=== PATIENT | female | born 1985 | race Hispanic/Latino ===

== ENCOUNTER 2018-12-04 20:52 | Emergency (ER) | payer OTHER ==
[2018-12-04 21:12] LABS: APPEARANCE,URINE Clear (CLEAR); BILIRUBIN,URINE Negative (NEGATIVE); COLOR,URINE Yellow (YELLOW); GLUCOSE, URINE (UA) Negative (NEGATIVE); KETONES,URINE Negative (NEGATIVE); LEUKOCYTE ESTERASE ,URINE Trace (NEGATIVE); NITRATE,URINE Negative (NEGATIVE); OCCULT BLOOD,URINE Large (NEGATIVE); PROTEIN,URINE Negative (NEGATIVE)
[2018-12-04 21:14] LABS: HCG,QUAL RESULT NEGATIVE (NEGATIVE)
[2018-12-04] MEDS ORDERED: DEXAMETHASONE SOD PHOSPHATE 10MG/ML 1ML VIAL ONE (21:19)
[2018-12-04] MEDS ORDERED: KETOROLAC TROMETHAMINE 60 MG/2 ML VIAL ONE (21:19)
[2018-12-04 21:31] LABS: WBC,URINE 0-1 /HPF (0-1)
[2018-12-04 21:32] LABS: BACTERIA,URINE Few /HPF (None Seen)
[2018-12-04] MEDS ORDERED: IBUPROFEN 600 MG TABLET ONE (21:46)
== END 2018-12-04 22:13 | disposition home or self-care (01) ==
LOC: EDH 20:52
DX: M54.5 Low back pain (principal)
CPT/HCPCS: 81001; 81025; 96372 ×2; 99284; J1100; J1885

== ENCOUNTER 2019-03-04 01:47 | Emergency (ER) | payer MEDICAID, OTHER ==
[2019-03-04] MEDS ORDERED: ONDANSETRON HCL 4 MG/2 ML VIAL ONE (02:28)
[2019-03-04] MEDS ORDERED: SODIUM CHLORIDE 0.9% 1000ML 1,000 ML IV ONE (02:28)
[2019-03-04 02:32] LABS: BASOPHILS % (AUTO) 0.7 % (0.0-5.0); EOSINOPHILS % (AUTO) 3.3 % (0.0-8.0); MEAN CORPUSCULAR HEMOGLOBIN 28.9 pg (27.0-33.0); MEAN CORPUSCULAR HGB CONC 33.4 g/dL (32.0-36.0); MEAN CORPUSCULAR VOLUME 86.4 fL (79-99); PLATELET COUNT (AUTO) 348 K/uL (130-400); RED CELL DISTRIBUTION WIDTH 13.7 % (11.0-15.5)
[2019-03-04] MEDS ORDERED: LIDOCAINE HCL 2% VISCOUS 15 ML UDCUP ONE (02:43)
[2019-03-04] MEDS ORDERED: FAMOTIDINE 20MG TAB 20 MG TAB ONE (02:43)
[2019-03-04] MEDS ORDERED: MAG HYDROX/AL HYDROX/SIMETH ES 30 ML SUSP UDCUP ONE (02:43)
[2019-03-04 02:44] LABS: APPEARANCE,URINE Clear (CLEAR); BILIRUBIN,URINE Negative (NEGATIVE); COLOR,URINE Yellow (YELLOW); GLUCOSE, URINE (UA) Negative (NEGATIVE); KETONES,URINE Negative (NEGATIVE); LEUKOCYTE ESTERASE ,URINE Negative (NEGATIVE); NITRATE,URINE Negative (NEGATIVE); OCCULT BLOOD,URINE Negative (NEGATIVE); PROTEIN,URINE Negative (NEGATIVE)
[2019-03-04 02:44] LABS: CREATININE 0.7 mg/dL (0.5-1.5); POTASSIUM 3.5 mmol/L (3.5-5.1)
[2019-03-04 02:50] LABS: ALBUMIN 3.8 g/dL (3.5-5.0); BILIRUBIN,TOTAL 0.4 mg/dL (0.2-1.0); TOTAL PROTEIN, SERUM 8.5 g/dL (6.0-8.3)
[2019-03-04 02:52] LABS: AMPHET/METH SCREEN,URINE NEGATIVE (NEGATIVE); BARBITURATE SCREEN, URINE NEGATIVE (NEGATIVE); BENZODIAZEPINES SCREEN,URINE NEGATIVE (NEGATIVE); CANNABINOID SCREEN,URINE NEGATIVE (NEGATIVE); COCAINE SCREEN,URINE NEGATIVE (NEGATIVE); OPIATE SCREEN,URINE NEGATIVE (NEGATIVE); PHENCYCLIDINE SCREEN,URINE NEGATIVE (NEGATIVE)
[2019-03-04 02:53] LABS: HCG,QUAL RESULT NEGATIVE (NEGATIVE)
[2019-03-04] MEDS ORDERED: KETOROLAC TROMETHAMINE 30MG/ML ONE (03:05)
== END 2019-03-04 04:25 | disposition home or self-care (01) ==
LOC: EDH 01:47
DX: R07.89 Other chest pain (principal); R10.13 Epigastric pain; R11.0 Nausea; Z98.890 Other specified postprocedural states
CPT/HCPCS: 36415; 71045; 80053; 80305; 81003; 81025; 83690; 84484 ×2; 85025; 93005; 96372; 96374; 99285; J1885; J2405; J7030; 96361

== ENCOUNTER 2022-05-29 18:38 | Emergency (ER) | payer MEDICAID, OTHER ==
[~2022-05-29] VITALS: Ht 157.5 cm; Wt 122.5 kg
[2022-05-29 18:39] VITALS: BP 128/75
[2022-05-29] MEDS ORDERED: KETOROLAC 30MG VIAL (30MG/ML) IM ONE (19:30)
[2022-05-29] MEDS ORDERED: KETOROLAC 30MG VIAL (30MG/ML) ONE (19:43)
[2022-05-29] MEDS ORDERED: CYCL10TA16 PO (19:48)
[2022-05-29] MEDS ORDERED: IBUP-2070 PO (19:48)
== END 2022-05-29 20:42 | disposition home or self-care (01) ==
LOC: EDH 18:38
DX: S83.92XA Sprain of unspecified site of left knee, initial encounter (principal); X50.1XXA Overexertion from prolonged static or awkward postures, initial encounter; Y93.89 Activity, other specified; Y92.89 Other specified places as the place of occurrence of the external cause; Y99.8 Other external cause status
CPT/HCPCS: 99283; 73562; 96372; J1885

== ENCOUNTER 2023-06-14 20:46 | Emergency (ER) | payer OTHER ==
[~2023-06-14] VITALS: Ht 157.5 cm; Wt 111.1 kg
[~2023-06-14 20:46] MED LIST: CYCL10TA16 PO; IBUP-2070 PO
[2023-06-14] MEDS ORDERED: DiphenhydrAMINE HCL 50 MG/ML VIAL IM ONE (23:00)
[2023-06-14] MEDS ORDERED: SOLU-MEDROL 125MG VIAL IM ONE (23:00)
[2023-06-14] MEDS: DiphenhydrAMINE HCL 50 MG/ML VIAL IV ONE (23:20)
[2023-06-14] MEDS: FAMOTIDINE 20MG VIAL IV ONE (23:20)
[2023-06-14] MEDS: SOLU-MEDROL 125MG VIAL IVP ONE (23:20)
[2023-06-14] MEDS: FAMOTIDINE 20MG TAB PO ONE (23:20)
[2023-06-15] MEDS: 0.9% NACL 500ML IV.SOLN 500 ML IV ONE ×2 (00:26)
[2023-06-15] MEDS: EPINEPHRINE PF 1MG (1:1,000) 1 MG/ML AMP SQ ONE (00:45)
[2023-06-15] MEDS ORDERED: DIPH-1242 PO (02:36)
[2023-06-15] MEDS ORDERED: PRED20TA3 PO (02:36)
[2023-06-15 02:46] VITALS: BP 112/56; PULSE 80; RESP 18; O2SAT 98
== END 2023-06-15 02:47 | disposition home or self-care (01) ==
LOC: EDH 20:46
DX: T78.49XA Other allergy, initial encounter (principal); T78.3XXA Angioneurotic edema, initial encounter; Z79.899 Other long term (current) drug therapy; Z98.890 Other specified postprocedural states; X58.XXXA Exposure to other specified factors, initial encounter
CPT/HCPCS: 99285; 96374; 96375; 96361; 96372; J7040 ×3; J1200; J3490; J2930; J0171

== ENCOUNTER 2024-03-16 16:15 | Emergency (ER) | payer SELFPAY ==
[~2024-03-16] VITALS: Ht 152.4 cm; Wt 99.8 kg
[~2024-03-16 16:15] MED LIST changes: +DIPH-1242 PO; +PRED20TA3 PO
--- NOTE | 2024-03-16 16:22 | ERN ---
ED Note History of Present Illness Stated Complaint: BACK PAIN Chief Complaint: Painful Urination Time Seen by MD: 16:18 Dictation: PATIENT IS A 38-YEAR-OLD FEMALE COMING IN TODAY WITH PAINFUL URINATION AND DYSURIA ONSET 2-3 DAYS PRIOR TO ARRIVAL. SHE STATES SHE HAS A OCCASIONAL FLANK PAIN HOWEVER NOW PRIMARILY IS SUPRAPUBIC AND DYSURIA. NO FEVER NO CHILLS NO NAUSEA VOMITING SHE STATES SHE DOES NOT HAVE ANY HISTORY OF URINARY TRACT INFECTIONS, NO PRIMARY CARE DOCTOR. SHE HAS NOT TAKEN ANYTHING PRIOR TO ARRIVAL FOR PAIN. Allergies: Coded Allergies: No Known Drug Allergies (Unverified Allergy, Unknown, 12/04/18) Home Meds Active Scripts Diphenhydramine HCl (Benadryl) 25 Mg Cap, 25 MG PO Q6HPRN PRN for ITCHING, #12 CAP Prov:MECHE HART MD 06/15/23 Prednisone (Prednisone) 20 Mg Tablet, 1 TAB PO DAILY for 3 Days, #3 TAB 0 Refills Prov:MECHE HART MD 06/15/23 Ibuprofen (Ibuprofen) 600 Mg Tablet, 600 MG PO Q6H PRN for PAIN for 5 Days, #20 TAB Prov:MIKEL MARIE V ROTOR COIL TAPER 05/29/22 Cyclobenzaprine HCl (Flexeril) 10 Mg Tab, 10 MG PO TID PRN for PAIN LEVEL 4 TO 6 for 3 Days, #9 TAB Prov:MIKEL MARIE V ROTOR COIL TAPER 05/29/22 Past Medical History Past Medical History: No Pertinent History Surgical History: None PSYCH History: no pertinent psych hx History: Not Applicable RN Note Reviewed/Agreed w/PFSH: Yes Review of System Dictation CONSTITUTIONAL: NEGATIVE EXCEPT FOR HPI HEAD/FACE: NEGATIVE EXCEPT FOR HPI EENT: NEGATIVE EXCEPT FOR HPI RESPIRATORY: NEGATIVE EXCEPT FOR HPI GASTROINTESTINAL/ABDOMINAL: NEGATIVE EXCEPT FOR HPI GENITOURINARY: NEGATIVE EXCEPT FOR HPI DYSURIA MUSCULOSKELETAL: NEGATIVE EXCEPT FOR HPI INTEGUMENTARY: NEGATIVE EXCEPT FOR HPI NEUROLOGICAL/PSYCH: NEGATIVE EXCEPT FOR HPI HEMATOLOGIC/LYMPHATIC: NEGATIVE EXCEPT FOR HPI ALL SYSTEMS NEGATIVE, EXCEPT NOTED ABOVE. 13 POINT REVIEW OF SYSTEMS ASSESSED AND ALL NEGATIVE EXCEPT FOR ABOVE. Initial Vital Sign VS Vital Signs Date Time Temp Pulse Resp B/P (MAP) Pulse Ox O2 Delivery O2 Flow Rate FiO2 03/16/24 16:17 98.8 97 12 118/81 98 0 Physical Exam Dictation VITAL SIGNS REVIEWED GENERAL APPEARANCE: ALERT, ORIENTED X 3, MILD ACUTE DISTRESS, WELL DEVELOPED, NOURISHED. HEAD AND FACE: NON-TRAUMATIC. EYES: PERRL, PINK CONJUNCTIVAS, EYELID NO TRAUMA, ANTERIOR CHAMBER WITH ARCUS SENILIS. EARS: PINNAS INTACT AND NO SIGNS OF TRAUMA OR ERYTHEMA EAR CANALS CLEAR AND NO DISCHARGE TM NO ERYTHEMA NOSE: NO DISCHARGE, NO BLEEDING. OROPHARYNX: MOUTH NORMAL, TONGUE PINK, PHARYNX CLEAR,NO ERYTHEMA, TONSILS NO EXUDATES, NO ABSCESSES NOTED, MUCOUS MEMBRANE MOIST NECK: SUPPLE, NON-TENDER, NO THYROMEGALY, NO MASSES, NO JVD, NO BRUITS BREAST:DEFERRED CHEST:NO TENDERNESS, NO CREPITUS, NO PARADOXICAL MOVEMENT, NO RETRACTIONS LUNGS:CLEAR, WELL-VENTILATED, SYMMETRIC, NO RALES, NO WHEEZING, NO RHONCHI, NO STRIDOR, GOOD BREATH SOUNDS BILATERALLY HEART: REGULAR RATE, REGULAR RHYTHM, NO MURMUR, NO GALLOPS VASCULAR: NO PERIPHERAL EDEMA, ABDOMEN: SOFT, POSITIVE BOWEL SOUNDS, NONDISTENDED, NO GUARDING, NONTENDER, NO REBOUND, NO MASSES NO HEPATOMEGALY, NO SPLENOMEGALY, NO LIM'S SIGN, NO HERNIAS. RECTAL: DEFERRED GENITAL: DEFERRED NEUROLOGICAL: NORMAL SPEECH, MOTOR FUNCTION INTACT, SENSORY FUNCTION INTACT MUSCULOSKELETAL: NECK NONTENDER, FULL RANGE OF MOTION, BACK NONTENDER, FULL RANGE OF MOTION, EXTREMITIES: NONTENDER, FULL RANGE OF MOTION SKIN: COLOR PINK, DRY, NO TURGOR, NO RASH, NO LACERATIONS, NO ABRASIONS, NO CONTUSIONS. LYMPHATIC: DEFERRED Results (Laboratory/Radiology) Laboratory/Radiology Laboratory Tests Test 03/16/24 17:06 Urine Color LIGHT-YELLOW (YELLOW) Urine Appearance CLEAR (CLEAR) Urine pH 5.5 (5.0-8.0) Urine Specific [place] 1.018 (1.001-1.031) Urine Protein NEGATIVE mg/dL (NEGATIVE) Urine Glucose (UA) NEGATIVE mg/dL (NEGATIVE) Urine Ketones NEGATIVE mg/dL (NEGATIVE) Urine Occult Blood NEGATIVE (NEGATIVE) Urine Nitrate NEGATIVE (NEGATIVE) Urine Bilirubin NEGATIVE mg/dL (NEGATIVE) Urine Urobilinogen 0.2 mg/dL (0.2-1.0) Urine Leukocyte Esterase 250 Coretta/uL (NEGATIVE) H Urine RBC 0-1 /HPF (0-1) Urine WBC 26-50 /HPF (0-1) H Urine Squamous Epithelial Cells FEW /HPF (0-2) Urine Bacteria FEW /HPF (None Seen) Labs Reviewed?: Yes ED Course ED Course Orders Procedure Category Date Status Time Ibuprofen 800 Mg Tab PHA 03/16/24 Complete (Motrin) 16:30 Phenazopyridine Hcl PHA 03/16/24 Complete 200 Mg Tab (Pyridium 16:30 Urinalysis Profile LAB 03/16/24 Complete 16:20 Culture Urine YOLANDA 03/16/24 In Process 17:31 Current Medications Medications (Trade) Dose Ordered Sig/Mabel Route PRN Reason Start Time Stop Time Status Last Admin Dose Admin Ibuprofen (moTRIN) 800 mg ONCE ONCE PO 03/16/24 16:30 03/16/24 16:31 DC 03/16/24 17:23 Phenazopyridine HCl (PYRIdium HCL 200 MG TAB) 200 mg ONCE ONCE PO 03/16/24 16:30 03/16/24 16:31 DC 03/16/24 17:23 Vital Signs Date Time Temp Pulse Resp B/P (MAP) Pulse Ox O2 Delivery O2 Flow Rate FiO2 03/16/24 16:17 98.8 97 12 118/81 98 0 1755, PATIENT WE WILL BE DIAGNOSED WITH A URINARY TRACT INFECTION SENT HOME WITH AUGMENTIN PYRIDIUM TOLD TO SEE YOUR PRIMARY CARE DOCTOR MONDAY Medical Decision Making MDM MEDICAL DECISION-MAKING BASED ON URINALYSIS ONLY FOR DYSURIA DIAGNOSED WITH A UTI, WE WILL SENT HOME WITH AUGMENTIN AND PYRIDIUM DX & DISP Disposition: Discharge Departure Impression: Primary Impression: Acute UTI Additional Impression: Dysuria Condition: Stable Scripts Phenazopyridine HCl (Pyridium) 200 Mg Tab 200 MG PO TIDPC for BURNING URINATION for 3 Days, #9 TAB TAKE WITH FOOD TO PREVENT STOMACH UPSET. Prov: MICHAEL DAMON NP 03/16/24 Amoxicillin/Potassium Clav (Amox Tr-K Clv 875-125 mg Tab) 875 Mg-125 Mg Tablet 1 EACH PO BID for 7 Days, #14 TAB 0 Refills Prov: MICHAEL DAMON NP 03/16/24 Additional Instructions: FOLLOW-UP WITH PRIMARY CARE PROVIDER IN 1 TO 2 DAYS. TAKE MEDICATIONS DIRECTED HERE IN THE EMERGENCY ROOM. OKAY TO CONTINUE HOME MEDICATIONS UNLESS OTHERWISE DISCUSSED DURING YOUR VISIT IN THE EMERGENCY ROOM TODAY. RETURN TO YOUR NEAREST EMERGENCY ROOM IF SYMPTOMS WORSEN OR IF THERE IS NO IMPROVEMENT. CALL 911 IF YOU NEED IMMEDIATE ASSISTANCE. TAKE TYLENOL OR MOTRIN [id number] NEEDED AND IF NO CONTRAINDICATIONS ARE PRESENT. INCREASE ORAL HYDRATION. A WOUND CULTURE OR URINE CULTURE WAS ORDERED HERE IN THE EMERGENCY ROOM DEPARTMENT PLEASE FOLLOW-UP WITH PRIMARY CARE PROVIDER AND ADVISE THEM TO GET REPEAT PORTS FROM OUR FACILITY. IF YOU HAD ANY LOVE WRAP/SPLINTS THAT WERE APPLIED HERE, PLEASE DO NOT REMOVE THEM UNTIL YOU SEE YOUR PRIMARY CARE OR SPECIALTY. TAKE ANTIBIOTICS DIRECTED UNTIL GONE., TAKE PYRIDIUM DIRECTED UNTIL GONE. SEE YOUR PRIMARY CARE DOCTOR ON MONDAY WITHOUT FAIL AND INCREASE YOUR WATER INTAKE. Referrals: SELF,REFERRAL (PCP) Time of Disposition: 17:54 I have reviewed the case, and I agree with, Diagnosis and Plan MICHAEL DAMON [employer] Mar 16, 2024 16:22
[2024-03-16] MEDS: ibuPROFEN 800 MG TAB PO ONE (17:23)
[2024-03-16] MEDS: PHENAZOpyridine HCL 200 MG TAB 200 MG TABLET PO ONE (17:23)
[2024-03-16 17:27] LABS: APPEARANCE,URINE CLEAR (CLEAR); BILIRUBIN,URINE NEGATIVE (NEGATIVE); COLOR,URINE LIGHT-YELLOW (YELLOW); GLUCOSE, URINE (UA) NEGATIVE (NEGATIVE); KETONES,URINE NEGATIVE (NEGATIVE); LEUKOCYTE ESTERASE ,URINE 250 Leu/uL (NEGATIVE); NITRATE,URINE NEGATIVE (NEGATIVE); OCCULT BLOOD,URINE NEGATIVE (NEGATIVE); PH,URINE 5.5 (5.0-8.0); PROTEIN,URINE NEGATIVE (NEGATIVE); UROBILINOGEN,URINE 0.2 mg/dL (0.2-1.0)
[2024-03-16 17:30] LABS: ADD UA MICROSCOPIC YES
[2024-03-16 17:41] LABS: BACTERIA,URINE FEW /HPF (None Seen); MUCUS,URINE RARE LPF (None Seen); RBC,URINE 0-1 /HPF (0-1); SQUAMOUS EPITHELIAL CELL,UR FEW /HPF (0-2); WBC,URINE 26-50 /HPF (0-1)
[2024-03-16] MEDS ORDERED: AMOX1TAB16 PO (17:55)
[2024-03-16] MEDS ORDERED: PHEN-847 PO (17:55)
[2024-03-16 18:30] VITALS: BP 120/74; PULSE 88; RESP 16; TEMP 98.8; O2SAT 98
== END 2024-03-16 18:31 | disposition home or self-care (01) ==
LOC: EDH 16:15
DX: N39.0 Urinary tract infection, site not specified (principal); R30.0 Dysuria; Z79.52 Long term (current) use of systemic steroids; Z79.899 Other long term (current) drug therapy
CPT/HCPCS: 81001; 87086; 87186; 99283